=== PATIENT | male | born 1985 | race Two or more races ===

== ENCOUNTER 2024-02-14 14:56 | Inpatient (IN) | payer OTHER ==
[2024-02-14 15:07] VITALS: BMI 30.1
[2024-02-14] MEDS ORDERED: ACETAMINOPHEN INJECTION 100 ML IVPB ONE (15:43)
[2024-02-14] MEDS: ACETAMINOPHEN 1000 MG/100 ML BAG IVPB ONE (15:53)
[2024-02-14] MEDS: SODIUM CHLORIDE 1,000 ML IV STA (15:53)
[2024-02-14 16:11] LABS: BASO % 0.2 % (0-2.0); EOS % 2.3 % (0-4.5); HEMATOCRIT 45.8 % (35.4-49); HEMOGLOBIN 15.6 GM/dL (11.7-16.9); LYMPH % 9.3 % (8-40); MEAN CELL VOLUME 88.3 fl (80-96); MEAN PLT VOLUME 8.1 fl (7.5-11.1); MONO % 6.3 % (3.8-10.2); NEUT % 81.9 % (42.8-82.8); PH,URINE 5.5 (5.0-8.0); PLATELET COUNT 247 10^3/uL (134-434); RBC 5.19 M/mm3 (4.00-5.60); RDW 13.6 % (11.9-15.9); URINE APPEARANCE CLEAR; URINE BILIRUBIN NEGATIVE (NEGATIVE); URINE COLOR DK YELLOW; URINE GLUCOSE (UA) NEGATIVE (NEGATIVE); URINE KETONE TRACE (NEGATIVE); URINE LEUK ESTERASE NEGATIVE (NEGATIVE); URINE NITRITE NEGATIVE (NEGATIVE); URINE PROTEIN TRACE (NEGATIVE); URINE UROBILINOGEN 0.2 mg/dL (0.2-1.0)
[2024-02-14 16:30] LABS: POTASSIUM 4.1 mmol/L (3.5-5.1)
[2024-02-14 16:32] LABS: CALCIUM 9.1 mg/dL (8.5-10.1)
[2024-02-14 16:33] LABS: BLOOD UREA NITROGEN 16.6 mg/dL (7-18)
[2024-02-14 16:36] LABS: CREATININE 1.1 mg/dL (0.55-1.3)
[2024-02-14 16:37] LABS: BILIRUBIN,TOTAL 0.7 mg/dL (0.2-1); TOT PROT 7.7 g/dl (6.4-8.2)
[2024-02-14 16:47] LABS: INR 1.05 (0.83-1.09); PROTHROMBIN TIME (PATIENT) 11.9 SEC (9.7-13.0)
[2024-02-14 16:50] LABS: ACTIVATED PTT 28.3 SECONDS (25.2-36.5)
[2024-02-14] MEDS ORDERED: HYDROmorphone HCl 2 MG/ML VIAL ONE (18:42)
[2024-02-14] MEDS ORDERED: PIPERACILLIN/TAZOB 4.5 GM 4.5 GM/100 ML BAG IVPB ONE (18:42)
[2024-02-14] MEDS: PIPERACILLIN/TAZOB 4.5 GM 4.5 GM in DEXTROSE 5%-WATER 100 ML IVPB ONE (19:01)
[2024-02-14] MEDS: HYDROmorphone HCl 2 MG/ML VIAL IVPUSH ONE (19:01)
[2024-02-14] MEDS: morphine CARPU-JECT 4 MG/1 ML DISP.SYRIN IVPUSH ONE (19:03)
[2024-02-14] MEDS: LACTATED RINGERS SOLUTION 1,000 ML/1,000 ML INFUS.BAG IV SCH (19:45)
[2024-02-14] MEDS: ACETAMINOPHEN 1000 MG/100 ML BAG IVPB PRN (22:21)
[2024-02-15 08:49] LABS: HEMATOCRIT 41.5 % (35.4-49); HEMOGLOBIN 14.2 GM/dL (11.7-16.9); MCH 30.1 pg (25.7-33.7); MCHC 34.2 g/dl (32.0-35.9); MEAN PLT VOLUME 8.4 fl (7.5-11.1); PLATELET COUNT 220 10^3/uL (134-434); RBC 4.72 M/mm3 (4.00-5.60); RDW 13.8 % (11.9-15.9)
[2024-02-15 09:16] LABS: POTASSIUM 4.1 mmol/L (3.5-5.1)
[2024-02-15 09:27] LABS: ALBUMIN 3.4 g/dl (3.4-5.0); CALCIUM 8.7 mg/dL (8.5-10.1)
[2024-02-15 09:28] LABS: BLOOD UREA NITROGEN 11.8 mg/dL (7-18)
[2024-02-15 09:29] LABS: CREATININE 0.8 mg/dL (0.55-1.3)
[2024-02-15 09:30] LABS: BILIRUBIN,TOTAL 1.2 mg/dL (0.2-1); TOT PROT 6.6 g/dl (6.4-8.2)
[2024-02-15] MEDS ORDERED: FENTANYL CITRATE/PF 50 MCG/ML VIAL ONE ×3 (09:40→12:23)
[2024-02-15] MEDS ORDERED: LIDOCAINE HCL/PF 2% SDV 5ML VIAL ONE (09:40)
[2024-02-15] MEDS ORDERED: MIDAZOLAM HCL 2 MG/2 ML SINGLE DOSE VIAL ONE (09:41)
[2024-02-15] MEDS ORDERED: ROCURONIUM BROMIDE 50 MG/5 ML SYRINGE ONE (09:41)
[2024-02-15] MEDS ORDERED: PROPOFOL 20 ML ONE (09:41)
[2024-02-15] MEDS ORDERED: PROMETHAZINE HCL 25 MG/1 ML VIAL IVPB PRN ×2 (10:00→12:15)
[2024-02-15] MEDS ORDERED: ONDANSETRON 4 MG/2 ML VIAL IVPUSH PRN ×2 (10:00→12:15)
[2024-02-15] MEDS ORDERED: LACTATED RINGERS SOLUTION 1,000 ML IV SCH (10:00)
[2024-02-15] MEDS ORDERED: cefOXitin SODIUM 2 GM VIAL (RESTRICTED TO ID) IVPB ONE (10:45)
[2024-02-15] MEDS ORDERED: BUPIVACAINE HCL/PF 0.25% (2.5MG/ML) 10 ML VIAL ONE (10:45)
[2024-02-15] MEDS: cefOXitin SODIUM 2 GM VIAL (RESTRICTED TO ID) IVPB ONE (10:55)
[2024-02-15] MEDS ORDERED: DEXAMETHASONE SOD PHOSPHATE 4 MG/1 ML VIAL ONE (10:57)
[2024-02-15] MEDS ORDERED: SUGAMMADEX SODIUM 200 MG/2 ML VIAL ONE (11:23)
[2024-02-15] MEDS ORDERED: KETOROLAC TROMETHAMINE 30 MG/1 ML VIAL ONE (11:23)
[2024-02-15] MEDS ORDERED: ACETAMINOPHEN INJECTION 100 ML IVPB ONE (12:10)
[2024-02-15] MEDS ORDERED: oxyCODONE HCL 5 MG TABLET PO PRN ×2 (12:15)
[2024-02-15] MEDS: ACETAMINOPHEN 1000 MG/100 ML BAG IVPB ONE (12:15)
[2024-02-15] MEDS: LACTATED RINGERS SOLUTION 1,000 ML IV SCH (14:08)
[2024-02-15] MEDS: DOCUSATE SODIUM 100 MG CAPSULE (FP) PO SCH (15:34)
[2024-02-15] MEDS: ACETAMINOPHEN 1000 MG/100 ML BAG IVPB SCH (18:29)
[2024-02-16 01:43] VITALS: RESP 20
[2024-02-16] MEDS: ACETAMINOPHEN 1000 MG/100 ML BAG IVPB ONE (07:29)
[2024-02-16 09:57] VITALS: BP 111/60; PULSE 77; TEMP 98.2
[2024-02-16 11:01] LABS: BASO % 0.4 % (0-2.0); EOS % 2.6 % (0-4.5); HEMOGLOBIN 13.9 GM/dL (11.7-16.9); LYMPH % 26.4 % (8-40); MCH 30.3 pg (25.7-33.7); MEAN PLT VOLUME 8.8 fl (7.5-11.1); MONO % 6.5 % (3.8-10.2); NEUT % 64.1 % (42.8-82.8); PLATELET COUNT 227 10^3/uL (134-434); RDW 13.7 % (11.9-15.9); WHITE BLOOD COUNT 9.5 K/mm3 (4.0-10.0)
[2024-02-16 11:16] LABS: POTASSIUM 3.8 mmol/L (3.5-5.1)
[2024-02-16 11:18] LABS: CALCIUM 8.7 mg/dL (8.5-10.1)
[2024-02-16 11:19] LABS: ALBUMIN 3.2 g/dl (3.4-5.0); BLOOD UREA NITROGEN 14.1 mg/dL (7-18)
[2024-02-16 11:22] LABS: CREATININE 0.9 mg/dL (0.55-1.3)
[2024-02-16 11:24] LABS: BILIRUBIN,TOTAL 0.9 mg/dL (0.2-1); TOT PROT 6.5 g/dl (6.4-8.2)
== END 2024-02-16 11:24 | disposition home or self-care (01) | DRG 225 ==
LOC: JER 14:56 → JERBED 19:00 → J8W 21:08
PROVIDERS: ADMIT Internal Medicine; ATTEND Nurse Practitioner Acute Care
PROC: 0DTJ4ZZ Resection of Appendix, Percutaneous Endoscopic Approach (ICD-10-PCS; principal; 2024-02-15 11:10)
DX: K35.890 Other acute appendicitis without perforation or gangrene (principal); R10.31 Right lower quadrant pain; E66.9 Obesity, unspecified; Z68.30 Body mass index [BMI] 30.0-30.9, adult
CPT/HCPCS: 36415; 74177-TC; 80053; 81003; 83690; 85025; 85027; 85610; 85730; 86850; 86900; 86901; 87086; 88304-TC; 93005; 93010; 94760; 99285-25; J0131; Q9967